=== PATIENT | female | born 1960 | race Caucasian/White ===

== ENCOUNTER 2016-08-28 18:26 | Observation (INO) | payer OTHER ==
[~2016-08-28] VITALS: Ht 167.6 cm; Wt 92.8 kg
[~2016-08-28 18:26] MED LIST: IBUP-1050 PO
[2016-08-28] MEDS ORDERED: ASPIRIN 324 MG CHEW PO STA (18:59)
[2016-08-28 19:22] LABS: BASO % 0.4 %; BASO ABS # 0.02 K/uL (0-0.2); COMPLETE YES; EOS % 0.2 %; IG% 0.2 %; LYMPH % 29.2 %; LYMPH ABS # 1.55 K/uL (1.2-3.4); MEAN CELL VOLUME 89.5 fL (80-100); MEAN CORPUSCULAR HGB CONC 33.5 g/dl (32-36); MONO % 6.8 %; NEUT % 63.2 %; PLATELET COUNT 196 K/uL (130-400); RED BLOOD COUNT 4.47 M/uL (4.2-5.4); WHITE BLOOD COUNT 5.31 K/uL (4.8-10.8)
--- NOTE | 2016-08-28 19:24 | DIAGNOSTIC IMAGING REPORT ---
CHEST ONE VIEW PORTABLE HISTORY: Atypical chest pain. COMPARISON: None. FINDINGS: The lungs are clear. Cardiac silhouette is normal in size. No pleural effusions. No pneumothorax. IMPRESSION: No acute process. Electronically signed by: Dragan Hernandez M.D. 08/28/2016 7:22 PM Dictated Date/Time: 08/28/2016 7:21 PM
[2016-08-28 19:30] LABS: INR 0.9 (0.9-1.1)
[2016-08-28 19:37] LABS: BUN/CREATININE RATIO 18.3 (10-20); CALCIUM 8.9 mg/dl (8.5-10.1); CREATININE 0.77 mg/dl (0.60-1.20); POTASSIUM 3.6 mmol/L (3.5-5.1)
[2016-08-28] MEDS ORDERED: POTASSIUM CHLORIDE 10 MEQ TABCR PO STA (20:20)
[2016-08-28 20:26] LABS: MAGNESIUM 1.9 mg/dl (1.8-2.4); THYROID STIMULATING HORMONE 3.67 uIu/ml (0.300-4.500)
[2016-08-28] MEDS ORDERED: IV FLUIDS COMPLETED PRN (20:30)
[2016-08-28] MEDS ORDERED: ONDANSETRON INJ 2 MG/ML 2 ML VIAL IV PRN (21:00)
[2016-08-28] MEDS ORDERED: NITROGLYCERIN 0.4 MG SL PER TAB CHARGE SL PRN (21:00)
[2016-08-28] MEDS ORDERED: MoRPHine SULFATE 4 MG/ML 1 ML CARP\\VIAL IV PRN (21:00)
[2016-08-28] MEDS ORDERED: LORAZEPAM 2 MG/ML 1 ML VIAL IV PRN ×2 (21:00)
[2016-08-28] MEDS ORDERED: GABAPENTIN 600 MG TAB PO SCH (21:00)
[2016-08-28] MEDS ORDERED: ACETAMINOPHEN 325 MG TAB PO PRN (21:00)
[2016-08-28] MEDS ORDERED: LORAZEPAM INJ 0.5 MG in SYRINGE 0.75 ML IV PRN (22:00)
[2016-08-28 22:04] VITALS: BP_SYST 188; BP_SYST 200; BP_DIAS 93; BP_DIAS 98; PULSE 85; TEMP 36.5; O2SAT 97; Ht 167.6 cm; Wt 92.8 kg
--- NOTE | 2016-08-28 22:36 | HISTORY & PHYSICAL EXAMINATION ---
DATE OF ADMISSION: 08/28/2016 PATIENT'S PRIMARY CARE DOCTOR: Dr. Chavez Hx obtained from px and records. CHIEF COMPLAINT: Chest pain. HISTORY OF PRESENT ILLNESS: Medical history is significant for regular alcohol intake. In the last 2 months, patient has been having on and off substernal discomfort, spontaneously going away, usually related to stress. No consultations done. Tonight the patient noted squeezing chest pain w palpitations. non-pleuritic Some stress with some family members going for surgery. No fever or chills. No cough. No shortness of breath. No trauma. MEDICAL HISTORY: As above. SURGERIES: section. HOME MEDICATIONS: None. ALLERGIES: No known drug allergies. FAMILY HISTORY: Alcoholism and heart disease. PERSONAL AND SOCIAL HISTORY: Nonsmoker. Regular alcohol intake. Family is worried that she may be drinking more than she should. 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 REVIEW OF SYSTEMS: As per HPI, all other ROS negative. PHYSICAL EXAMINATION: VITAL SIGNS: Blood pressure was noted to be 201/120, pulse rate 101 later 90, RR 18, temperature 37.2 and sats 94 on room air. GENERAL: Noted to be obese, anxious, in no respiratory distress. SKIN: Normal color. HEENT: [place] palpebral conjunctivae. Dry mucosa. NECK: No JVD. Supple. CHEST: Clear to auscultation. No anterior chest wall tenderness. HEART: Regular rate and rhythm. ABDOMEN: Soft. EXTREMITIES: No edema. no tenderness NEUROLOGIC: No gross focality. LABORATORIES: Hemoglobin 13.4, hematocrit 40, white cell count was noted to be 5.3, platelets of 196. Sodium 140, potassium 3.6, chloride 107, CO2 34, BUN 14, creatinine 0.7 and glucose was noted to be 86. Chest x-ray; no acute pathology. EKG; NSR. LAE with borderline LVH, NSSTW abn on the lateral leads. ASSESSMENT: 1. Atypical chest pain, likely secondary to hypertensive urgency. possible chronic HTN w/ LAE on EKG 2. Possible alcohol abuse. PLAN: Observation PCU. initiate Lisinopril. Follow troponin, 2D echo. Home tomorrow morning if patient's blood pressure controlled and above workup unremarkable. DT precautions DVT prophylaxis. Lovenox SQ Full code MTDD
[2016-08-28] MEDS ORDERED: MULTI-VITAMIN INFUSION INJ 10 ML, THIAMINE HCL INJ 100 MG, FoLIC ACID INJ 1 MG, POTASSI... IV ONE ×5 (23:00)
[2016-08-28] MEDS ORDERED: LISINOPRIL 5 MG TAB PO SCH (23:00)
[2016-08-28] MEDS ORDERED: MAGNESIUM SULFATE 1GM / D5W 1 GM in PREMIXED IN D5W 100 ML IV SCH (23:00)
[2016-08-28] MEDS ORDERED: GABAPENTIN 1200MG LOADING DOSE PO ONE (23:00)
[2016-08-28] MEDS: ENOXAPARIN 40 MG/0.4 ML SYR SC SCH (23:21)
[2016-08-28 23:39] VITALS: BP 167/100; PULSE 87; TEMP 36.9; O2SAT 97
[2016-08-29] VITALS (10 sets, daily range): BP systolic 120–157; BP diastolic 76–91; PULSE 63–80; TEMP 36.6–36.9; O2SAT 96–99
--- NOTE | 2016-08-29 00:54 | EMERGENCY ROOM VISIT NOTE ---
History Report prepared by Jonas: Geneva Ga Under the Supervision of: Dr. Mick Wiley M.D. 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 She states that her symptoms lasted for about 30 minutes and then resolved on their own after arriving the the ED. She was not exerting herself when her symptoms began and states that she was just driving home. The patient denies any current pain. She states that she is just feeling generally weak and shaky all over. The patient has been having episodes over the past 3 years where she develops a tightness in her chest and feels like she is going to pass out. She does not actually pass out. The patient states that these episodes have been getting worse recently. Today she experienced the same thing, but she also felt her heart beating irregularly, which she states is new today. The patient denies shortness of breath, diaphoresis, nausea, vomiting, fever, cough, and leg pain or swelling. She does not experience any chest pain with exertion. Her aunt had an OR in her 40s. 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 A total of 10 systems reviewed and were otherwise negative. Past Medical & Surgical Medical Problems: (1) Chest pain (2) Finger dislocation (3) Popliteal cyst (4) Sterilization Family History Heart disease Social History Smoking Status: Never Smoker Housing Status: lives with family Occupation Status: employed Current/Historical Medications No Active Prescriptions or Reported Meds Allergies Coded Allergies: No Known Allergies (Verified , 08/28/16) Physical Exam Vital Signs Date Time Temp Pulse Resp B/P Pulse Ox O2 Delivery O2 Flow Rate FiO2 08/28/16 20:06 84 16 199/118 97 Room Air 08/28/16 19:17 98 08/28/16 19:01 98 Room Air 08/28/16 19:00 175/112 08/28/16 18:59 101 18 201/120 97 Room Air 08/28/16 18:56 98 Room Air 08/28/16 18:35 37.2 87 18 176/119 94 Room Air Physical Exam Constitutional: Vital signs reviewed. Eyes: Pupils are equal round reactive to light. Conjunctiva are noninjected. ENT: Pharynx is clear without erythema or exudate. Mucous membranes are moist. Neck supple without meningeal signs. Respiratory: Clear to auscultation bilaterally. Breath sounds are equal bilaterally. Cardiovascular: Regular rate and rhythm. No rubs or gallops. GI: Soft, nondistended and nontender. Bowel sounds are present. Musculoskeletal: No peripheral edema. No lower extremity tenderness. Integumentary: No cyanosis. Neurological: The patient is awake and alert. No focal deficits. Psychiatric: Normal affect. Medical Decision & Procedures ER Provider Diagnostic Interpretation: Radiology results as stated below per my review and the radiologist's interpretation: CHEST ONE VIEW PORTABLE HISTORY: Atypical chest pain. COMPARISON: None. FINDINGS: The lungs are clear. Cardiac silhouette is normal in size. No pleural effusions. No pneumothorax. IMPRESSION: No acute process. Electronically signed by: Dragan Hernandez M.D. 08/28/2016 7:22 PM Dictated Date/Time: 08/28/2016 7:21 PM Laboratory Results 08/28/16 19:10 Red Blood Count 4.47, Mean Corpuscular Volume 89.5, Mean Corpuscular Hemoglobin 30.0, Mean Corpuscular Hemoglobin Concent 33.5, Mean Platelet Volume 10.0, Neutrophils (%) (Auto) 63.2, Lymphocytes (%) (Auto) 29.2, Monocytes (%) (Auto) 6.8, Eosinophils (%) (Auto) 0.2, Basophils (%) (Auto) 0.4, Neutrophils # (Auto) 3.36, Lymphocytes # (Auto) 1.55, Monocytes # (Auto) 0.36, Eosinophils # (Auto) 0.01, Basophils # (Auto) 0.02 08/28/16 19:10 Test 08/28/16 19:10 08/28/16 19:14 White Blood Count 5.31 K/uL (4.8-10.8) Red Blood Count 4.47 M/uL (4.2-5.4) Hemoglobin 13.4 g/dL (12.0-16.0) Hematocrit 40.0 % (37-47) Mean Corpuscular Volume 89.5 fL (80-100) Mean Corpuscular Hemoglobin 30.0 pg (25-34) Mean Corpuscular Hemoglobin Concent 33.5 g/dl (32-36) Platelet Count 196 K/uL (130-400) Mean Platelet Volume 10.0 fL (7.4-10.4) Neutrophils (%) (Auto) 63.2 % Lymphocytes (%) (Auto) 29.2 % Monocytes (%) (Auto) 6.8 % Eosinophils (%) (Auto) 0.2 % Basophils (%) (Auto) 0.4 % Neutrophils # (Auto) 3.36 K/uL (1.4-6.5) Lymphocytes # (Auto) 1.55 K/uL (1.2-3.4) Monocytes # (Auto) 0.36 K/uL (0.11-0.59) Eosinophils # (Auto) 0.01 K/uL (0-0.5) Basophils # (Auto) 0.02 K/uL (0-0.2) RDW Standard Deviation 48.5 fL (36.4-46.3) RDW Coefficient of Variation 14.7 % (11.5-14.5) Immature Granulocyte % (Auto) 0.2 % Immature Granulocyte # (Auto) 0.01 K/uL (0.00-0.02) Prothrombin Time 10.0 SECONDS (9.0-12.0) Prothromb Time International Ratio 0.9 (0.9-1.1) Activated Partial Thromboplast Time 25.7 SECONDS (21.0-31.0) Partial Thromboplastin Ratio 1.0 Anion Gap 11.0 mmol/L (3-11) Est Creatinine Clear Calc Drug Dose 98.0 ml/min Estimated GFR () 101.5 Estimated GFR (Non- 87.5 BUN/Creatinine Ratio 18.3 (10-20) Calcium Level 8.9 mg/dl (8.5-10.1) Magnesium Level 1.9 mg/dl (1.8-2.4) Total Bilirubin 0.5 mg/dl (0.2-1) Direct Bilirubin 0.1 mg/dl (0-0.2) Aspartate Amino Transf (AST/SGOT) 25 U/L (15-37) Alanine Aminotransferase (ALT/SGPT) 28 U/L (12-78) Alkaline Phosphatase 82 U/L (45-117) Total Protein 7.7 gm/dl (6.4-8.2) Albumin 4.4 gm/dl (3.4-5.0) Lipase 90 U/L (73-393) Thyroid Stimulating Hormone (TSH) 3.670 uIu/ml (0.300-4.500) Bedside Troponin I 0.000 ng/ml (0-0.045) Laboratory results as reviewed by me. Medications Administered Medications (Trade) Dose Ordered Sig/Kanwal Route Start Time Stop Time Status Last Admin Dose Admin Aspirin (Aspirin Chew) 324 mg NOW STAT PO 08/28/16 18:59 08/28/16 19:00 DC 08/28/16 19:07 324 MG ECG Indication: chest pain Rate (beats per minute): 92 Rhythm: normal sinus Findings: ST depression (Inferior, V3 - V6), prolonged QT, no ectopy Comparison ECG Date: no prior available ED Course 1841: The patient was evaluated in room B3B. A complete history and physical exam was performed. 1858: Aspirin 324 mg PO 1942: I reassessed the patient at this time. She is feeling better and resting comfortably. She is not currently experiencing any chest pain. I discussed the results and treatment plan with the patient. I answered all pertaining questions that she had. She expressed understanding and verbalized agreement. 1945: I spoke with Dr. Page. We discussed the patient's results and treatment plan. [facility]. Medical Decision This is a 55-year-old female presents with chest pain. Differential diagnosis includes unstable angina, OR, pleurisy, GERD, anxiety. I did perform a limited focused review of portions of the patient's old chart on the electronic medical record. The patient has had no recent pertinent visits to this hospital. I did evaluate the patient as noted above. Patient is presenting with chest pain which has since resolved. She states she has tightness and near syncope. She is chest pain-free at this time. She does have a strong family history of heart disease. IV access was established. The patient was placed on a continuous ekg monitor tech. I did treat the patient with aspirin. I did order and personally review the patient's 12-lead EKG and chest x-ray as described above. She does have an abnormal EKG with ST depressions. I did order and review the patient's blood work as noted in the electronic medical record. Troponin is negative. I did discuss the test results with the patient. I did recommend hospitalization for further evaluation of her symptoms and repeat cardiac enzymes. I did discuss the case with the hospitalist and manager case management. Consults Time Called: 1944 Consulting Physician: Dr. Page Returned Call: [address] Page. We discussed the patient's results and treatment plan. The patient will be evaluated by the [facility] for further management. Impression Primary Impression: Precordial chest pain Additional Impressions: Hypertension Abnormal ECG Scribe Attestation The scribe's documentation has been prepared under my direct and personally reviewed by me in its entirety. I confirm that the note above accurately reflects all work, treatment, procedures, and medical decision making performed by me. Departure Information Dispostion Being Evaluated By Hospitalist Prescriptions No Active Prescriptions or Reported Meds Referrals No Doctor, Assigned (PCP) Patient Instructions [facility] Problem Qualifiers Additional Impressions: Hypertension Hypertension type: unspecified secondary hypertension Qualified Codes: I15.9 - Secondary hypertension, unspecified
[2016-08-29] MEDS ORDERED: IV FLUIDS COMPLETED PRN (02:15)
[2016-08-29] MEDS: GABAPENTIN 600MG Q6H DOSE PO SCH ×2 (05:17→11:52)
[2016-08-29 06:45] LABS: BASO % 0.2 %; BASO ABS # 0.01 K/uL (0-0.2); COMPLETE YES; EOS % 0.5 %; HEMATOCRIT 38.5 % (37-47); LYMPH % 32.3 %; LYMPH ABS # 1.41 K/uL (1.2-3.4); MEAN CELL VOLUME 91.9 fL (80-100); MEAN CORPUSCULAR HEMOGLOBIN 29.8 pg (25-34); MEAN CORPUSCULAR HGB CONC 32.5 g/dl (32-36); MEAN PLATELET VOLUME 10.5 fL (7.4-10.4); MONO % 8.9 %; NEUT % 58.1 %; PLATELET COUNT 182 K/uL (130-400); RED BLOOD COUNT 4.19 M/uL (4.2-5.4); WHITE BLOOD COUNT 4.37 K/uL (4.8-10.8)
[2016-08-29 07:13] LABS: BLOOD UREA NITROGEN 15 mg/dl (7-18); BUN/CREATININE RATIO 20.4 (10-20); CALCIUM 8.8 mg/dl (8.5-10.1); CARBON DIOXIDE 29 mmol/L (21-32); CHLORIDE 107 mmol/L (98-107); CREATININE 0.73 mg/dl (0.60-1.20); GLUCOSE 85 mg/dl (70-99); POTASSIUM 3.9 mmol/L (3.5-5.1); SODIUM 142 mmol/L (136-145)
[2016-08-29 07:17] LABS: CHOLESTEROL 232 mg/dl (0-200); HDL CHOLESTEROL 117 mg/dl; LDL CHOLESTEROL CALCULATED 100 mg/dl; TRIGLYCERIDES 75 mg/dl (0-150); VERY LOW DENSITY LIPOPROT CALC 15 mg/dl
[2016-08-29] MEDS: THIAMINE HCL 100 MG TAB PO SCH (08:37)
[2016-08-29] MEDS: MULTIVITAMIN TAB PO SCH (08:37)
[2016-08-29] MEDS ORDERED: LISINOPRIL 5 MG TAB PO SCH (09:00)
--- NOTE | 2016-08-29 13:21 | ECHOCARDIOGRAM REPORT ---
*NOTICE TO RECEIVING LIBERTARIAN AGENCY This information is strictly Confidential and protected under [place] law. [place] law prohibits you from making any further disclosure of this information unless further disclosure is expressly permitted by the written consent of the person to whom it pertains or is authorized by law. A general authorization for the release of medical or other information is not sufficient for this purpose. Hospital accepts no responsibility if the information is made available to any other person, INCLUDING THE PATIENT. Interpretation Summary * Name: KARTHIKEYAN PALOMARES Study Date: 08/29/2016 07:08 AM BP: 120/78 mmHg * Patient Location: [facility] HR: 67 * : 1960 (M/d/yyyy) Gender: Female Height: 66 in * Age: 55 yrs Ethnicity: [place] Weight: 209 lb * Ordering Physician: Ian Page * Performed By: Kaycee Garnica RDCS * * Reason For Study: Chest pain * BSA: 2.0 m2 * -- Conclusions -- * The left ventricular wall motion is normal. * Left ventricular systolic function is normal. * The LV Ejection Fraction = 60-65%. * Diastolic dysfunction, Grade II (pseudonormalization pattern). * There is no significant valvular heart disease. Procedure Details * A complete two-dimensional transthoracic echocardiogram was performed (2D, M-mode, Doppler and color flow Doppler). Left Ventricle * The left ventricle is normal in size. * There is normal left ventricular wall thickness. * Ejection Fraction = 60-65%. * Left ventricular systolic function is normal. * The left ventricular wall motion is normal. Right Ventricle * The right ventricle is normal size. * The right ventricular systolic function is normal as assessed by tricuspid annular plane systolic excursion (TAPSE) (normal >1.5 cm). Atria * The left atrial size is normal. * Right atrial size is normal. * There is no evidence of atrial septal defect, but resolution does not allow assessment for a patent foramen ovale. Mitral Valve * The mitral valve is normal. * There is no mitral valve stenosis. * Significant mitral regurgitation is absent. Tricuspid Valve * The tricuspid valve is normal. * There is no tricuspid stenosis. * Significant tricuspid regurgitation is absent. Aortic Valve * The aortic valve is trileaflet. * Aortic stenosis is absent. * There is no significant aortic regurgitation. Pulmonic Valve * The pulmonary valve is not well seen, but the Doppler examination is normal without significant regurgitation or stenosis. Great Vessels * The aortic root and proximal ascending aorta are normal sized. Pericardium/Pleural * There is no pericardial effusion. Great Vessels * Normal inferior vena cava diameter and respiratory variation suggests normal central venous pressure. Left Ventricular Diastolic Function * Diastolic dysfunction, Grade II (pseudonormalization pattern). MMode 2D Measurements and Calculations IVSd 1.3 cm LVIDd 5.0 cm LVIDs 3.2 cm LVPWd 1.3 cm IVS/LVPW 1.0 FS 37.1 % EDV(Teich) 120.8 ml ESV(Teich) 40.2 ml EF(Teich) 66.7 % EDV(cubed) 128.5 ml ESV(cubed) 32.0 ml EF(cubed) 75.1 % LV mass(C)d 254.6 grams LV mass(C)dI 125.0 grams/m\S\2 SV(Teich) 80.6 ml SI(Teich) 39.6 ml/m\S\2 SV(cubed) 96.5 ml SI(cubed) 47.4 ml/m\S\2 Ao root diam 3.3 cm Ao root area 8.4 cm\S\2 ACS 2.1 cm LA dimension 3.9 cm asc Aorta Diam 3.5 cm LA/Ao 1.2 LVOT diam 2.0 cm LVOT area 3.1 cm\S\2 LVAd ap4 26.5 cm\S\2 LVLd ap4 7.4 cm EDV(MOD-sp4) 81.1 ml EDV(sp4-el) 79.9 ml LVAs ap4 15.2 cm\S\2 LVLs ap4 6.2 cm ESV(MOD-sp4) 32.5 ml ESV(sp4-el) 31.4 ml EF(MOD-sp4) 59.9 % EF(sp4-el) 60.8 % LVAd ap2 26.8 cm\S\2 LVLd ap2 8.1 cm EDV(MOD-sp2) 79.1 ml EDV(sp2-el) 75.3 ml LVAs ap2 14.3 cm\S\2 LVLs ap2 6.4 cm ESV(MOD-sp2) 27.3 ml ESV(sp2-el) 27.2 ml EF(MOD-sp2) 65.5 % EF(sp2-el) 63.9 % LVLd %diff 7.9 % EDV(MOD-bp) 83.4 ml LVLs %diff 2.8 % ESV(MOD-bp) 30.3 ml EF(MOD-bp) 63.7 % SV(MOD-sp4) 48.5 ml SI(MOD-sp4) 23.8 ml/m\S\2 SV(MOD-sp2) 51.8 ml SI(MOD-sp2) 25.4 ml/m\S\2 SV(MOD-bp) 53.1 ml SI(MOD-bp) 26.1 ml/m\S\2 SV(sp4-el) 48.6 ml SI(sp4-el) 23.8 ml/m\S\2 SV(sp2-el) 48.1 ml SI(sp2-el) 23.6 ml/m\S\2 Doppler Measurements and Calculations MV E max pro 59.4 cm/sec MV dec time 0.32 sec Ao V2 max 112.9 cm/sec Ao max PG 5.1 mmHg Ao max PG (full) 1.6 mmHg CHRISTINE(V,A) 2.6 cm\S\2 CHRISTINE(V,D) 2.6 cm\S\2 LV V1 max PG 3.5 mmHg LV V1 max 94.0 cm/sec PA V2 max 82.5 cm/sec PA max PG 2.7 mmHg PA acc slope 434.3 cm/sec\S\2 PA acc time 0.18 sec PI max pro 136.4 cm/sec PI max PG 7.4 mmHg PI dec slope 159.3 cm/sec\S\2 PI P1/2t 250.8 msec TR max pro 200.9 cm/sec PA pr(Accel) -1.81 mmHg
[2016-08-29] MEDS ORDERED: LISINOPRIL 5 MG TAB PO ONE (14:30)
--- NOTE | 2016-08-29 14:36 | Progress Note ---
Internal Med Progress Note Date of Service: Aug 29, 2016. Provider Documentation: SUBJECTIVE: The patient was seen and examined Symptoms of chest tightness on and off for a while Short lived and thinks related to stress and anxiety Moderate Alcohol drinker Noted to have very high BP during admission OBJECTIVE: Vital Signs-as noted below Exam: General-No distress at rest Eyes-normal ENT-normal Neck-supple Lungs-clear to ausucltate bilaterally Heart-regular,no murmur Abdomen-benign,no masses,bowel sound present Extremities-No edema Neuro-AAOx3 No tremors Lab data as noted below. ASSESSMENT & PLAN: Atypical chest pain, -likely secondary to hypertensive urgency.stress and anxiety and panic attack -history of prior episodes -lasted longer this time with very high BP -Follow troponin, 2D echo.Negative -ECHO:: * The left ventricular wall motion is normal. * Left ventricular systolic function is normal. * The LV Ejection Fraction = 60-65%. * Diastolic dysfunction, Grade II (pseudonormalization pattern). * There is no significant valvular heart disease. -no more episode of pain Hypertensive Urgency May be contributing her symptoms Started on Lisinopril Dose increased Monitor Possible alcohol abuse. Drinks more than social Last drink >24 hours ago Has been on Folic acid,Thiamin and fluid To signs of withdrawal DT precautions DVT prophylaxis. Lovenox SQ Full code DISPOSITION Likely home in AM Vital Signs: Date Time Temp Pulse Resp B/P Pulse Ox O2 Delivery O2 Flow Rate FiO2 08/29/16 12:12 36.9 67 20 157/89 96 Room Air 08/29/16 12:00 97 Room Air 08/29/16 09:15 80 148/84 08/29/16 08:00 97 Room Air 08/29/16 04:06 36.6 67 18 120/78 97 Room Air 08/29/16 04:00 97 Room Air 08/29/16 00:01 97 Room Air 08/28/16 23:39 36.9 87 18 167/100 97 Room Air 08/28/16 22:04 36.5 85 20 188/93 97 Room Air 200/98 08/28/16 20:48 92 18 187/109 96 Room Air 08/28/16 20:06 84 16 199/118 97 Room Air 08/28/16 19:17 98 08/28/16 19:01 98 Room Air 08/28/16 19:00 175/112 08/28/16 18:59 101 18 201/120 97 Room Air 08/28/16 18:56 98 Room Air 08/28/16 18:35 37.2 87 18 176/119 94 Room Air Lab Results: Results Past 24 Hours Test 08/28/16 19:10 08/28/16 19:14 08/29/16 05:58 Range/Units White Blood Count 5.31 4.37 4.8-10.8 K/uL Red Blood Count 4.47 4.19 4.2-5.4 M/uL Hemoglobin 13.4 12.5 12.0-16.0 g/dL Hematocrit 40.0 38.5 37-47 % Mean Corpuscular Volume 89.5 91.9 80-100 fL Mean Corpuscular Hemoglobin 30.0 29.8 25-34 pg Mean Corpuscular Hemoglobin Concent 33.5 32.5 32-36 g/dl Platelet Count 196 182 130-400 K/uL Mean Platelet Volume 10.0 10.5 7.4-10.4 fL Neutrophils (%) (Auto) 63.2 58.1 % Lymphocytes (%) (Auto) 29.2 32.3 % Monocytes (%) (Auto) 6.8 8.9 % Eosinophils (%) (Auto) 0.2 0.5 % Basophils (%) (Auto) 0.4 0.2 % Neutrophils # (Auto) 3.36 2.54 1.4-6.5 K/uL Lymphocytes # (Auto) 1.55 1.41 1.2-3.4 K/uL Monocytes # (Auto) 0.36 0.39 0.11-0.59 K/uL Eosinophils # (Auto) 0.01 0.02 0-0.5 K/uL Basophils # (Auto) 0.02 0.01 0-0.2 K/uL RDW Standard Deviation 48.5 50.2 36.4-46.3 fL RDW Coefficient of Variation 14.7 14.8 11.5-14.5 % Immature Granulocyte % (Auto) 0.2 0.0 % Immature Granulocyte # (Auto) 0.01 0.00 0.00-0.02 K/uL Prothrombin Time 10.0 9.0-12.0 SECONDS Prothromb Time International Ratio 0.9 0.9-1.1 Activated Partial Thromboplast Time 25.7 21.0-31.0 SECONDS Partial Thromboplastin Ratio 1.0 Sodium Level 142 142 136-145 mmol/L Potassium Level 3.6 3.9 3.5-5.1 mmol/L Chloride Level 107 107 98-107 mmol/L Carbon Dioxide Level 24 29 21-32 mmol/L Anion Gap 11.0 6.0 3-11 mmol/L Blood Urea Nitrogen 14 15 7-18 mg/dl Creatinine 0.77 0.73 0.60-1.20 mg/dl Est Creatinine Clear Calc Drug Dose 98.0 101.1 ml/min Estimated GFR () 101.5 108.2 Estimated GFR (Non- 87.5 93.4 BUN/Creatinine Ratio 18.3 20.4 10-20 Random Glucose 86 85 70-99 mg/dl Calcium Level 8.9 8.8 8.5-10.1 mg/dl Magnesium Level 1.9 1.8-2.4 mg/dl Total Bilirubin 0.5 0.2-1 mg/dl Direct Bilirubin 0.1 0-0.2 mg/dl Aspartate Amino Transf (AST/SGOT) 25 15-37 U/L Alanine Aminotransferase (ALT/SGPT) 28 12-78 U/L Alkaline Phosphatase 82 45-117 U/L Total Protein 7.7 6.4-8.2 gm/dl Albumin 4.4 3.4-5.0 gm/dl Lipase 90 73-393 U/L Thyroid Stimulating Hormone (TSH) 3.670 0.300-4.500 uIu/ml Bedside Troponin I 0.000 0-0.045 ng/ml Troponin I < 0.015 0-0.045 ng/ml Triglycerides Level 75 0-150 mg/dl Cholesterol Level 232 0-200 mg/dl HDL Cholesterol 117 mg/dl LDL Cholesterol, Calculated 100 mg/dl VLDL Cholesterol, Calculated 15 mg/dl Cholesterol/HDL Ratio 2.0
[2016-08-29] MEDS: ENOXAPARIN 40 MG/0.4 ML SYR SC SCH (20:54)
[2016-08-29] MEDS: GABAPENTIN 600MG Q8H DOSE PO SCH (22:07)
[2016-08-30 04:15] VITALS: BP 123/78; PULSE 60; TEMP 36.4; O2SAT 97
[2016-08-30] MEDS: GABAPENTIN 600MG Q8H DOSE PO SCH (05:58)
[2016-08-30 06:14] LABS: BUN/CREATININE RATIO 20.6 (10-20); CREATININE 0.76 mg/dl (0.60-1.20); MAGNESIUM 2.5 mg/dl (1.8-2.4); PHOSPHORUS 4.4 mg/dl (2.5-4.9); POTASSIUM 4.3 mmol/L (3.5-5.1)
[2016-08-30] MEDS: MULTIVITAMIN TAB PO SCH (07:39)
[2016-08-30] MEDS: THIAMINE HCL 100 MG TAB PO SCH (07:39)
[2016-08-30 08:19] VITALS: BP 131/84; PULSE 71; TEMP 36.6; O2SAT 93
[2016-08-30] MEDS ORDERED: LISINOPRIL 5 MG TAB PO SCH (09:00)
--- NOTE | 2016-08-30 11:07 | Progress Note ---
Internal Med Progress Note Date of Service: Aug 30, 2016. Provider Documentation: SUBJECTIVE: The patient was seen and examined Symptoms of chest tightness on and off for a while Short lived and thinks related to stress and anxiety Moderate Alcohol drinker Noted to have very high BP during admission Denies any more symptoms BP remains controlled Wants tayla go home today OBJECTIVE: Vital Signs-as noted below Exam: General-No distress at rest Eyes-normal ENT-normal Neck-supple Lungs-clear to ausucltate bilaterally Heart-regular,no murmur Abdomen-benign,no masses,bowel sound present Extremities-No edema Neuro-AAOx3 No tremors Lab data as noted below. ASSESSMENT & PLAN: Atypical chest pain-resolved , -likely secondary to hypertensive urgency.stress and anxiety and panic attack -history of prior episodes -lasted longer this time with very high BP -Follow troponin, 2D echo.Negative -ECHO:: * The left ventricular wall motion is normal. * Left ventricular systolic function is normal. * The LV Ejection Fraction = 60-65%. * Diastolic dysfunction, Grade II (pseudonormalization pattern). * There is no significant valvular heart disease. -no more episode of pain Hypertensive Urgency May be contributing her symptoms Started on Lisinopril Dose increased Blood pressure is controlled wit Increasing dose of Lisinopril Possible alcohol abuse. Drinks more than social Last drink >24 hours ago Has been on Folic acid,Thiamin and fluid To signs of withdrawal DT precautions-no tremors and or any other signs or symptoms of withdrawal DVT prophylaxis. Lovenox SQ Full code DISPOSITION Discharge home today Vital Signs: Date Time Temp Pulse Resp B/P Pulse Ox O2 Delivery O2 Flow Rate FiO2 08/30/16 08:40 Room Air 08/30/16 08:19 36.6 71 18 131/84 93 Room Air 08/30/16 04:15 36.4 60 16 123/78 97 Room Air 08/30/16 04:00 Room Air 08/30/16 00:01 Room Air 08/29/16 23:20 36.7 63 16 125/76 97 Room Air 08/29/16 20:00 Room Air 08/29/16 19:53 36.9 67 16 151/91 99 08/29/16 16:00 Room Air 08/29/16 15:45 36.8 68 18 144/90 96 Room Air 08/29/16 12:12 36.9 67 20 157/89 96 Room Air 08/29/16 12:00 97 Room Air Lab Results: Results Past 24 Hours Test 08/30/16 05:20 Range/Units Sodium Level 144 136-145 mmol/L Potassium Level 4.3 3.5-5.1 mmol/L Chloride Level 110 98-107 mmol/L Carbon Dioxide Level 29 21-32 mmol/L Anion Gap 5.0 3-11 mmol/L Blood Urea Nitrogen 16 7-18 mg/dl Creatinine 0.76 0.60-1.20 mg/dl Est Creatinine Clear Calc Drug Dose 97.1 ml/min Estimated GFR () 103.1 Estimated GFR (Non- 88.9 BUN/Creatinine Ratio 20.6 10-20 Random Glucose 93 70-99 mg/dl Calcium Level 9.0 8.5-10.1 mg/dl Phosphorus Level 4.4 2.5-4.9 mg/dl Magnesium Level 2.5 1.8-2.4 mg/dl
[2016-08-30] MEDS ORDERED: LISI-461 PO (11:29)
--- NOTE | 2016-08-30 11:33 | Discharge Instructions ---
Discharge Instructions Date of Service Aug 30, 2016. Admission Reason for Admission: Chest Pain Discharge Discharge Diagnosis / Problem: Hypertensive Urgency Discharge Goals Goal(s): Prevent Disease Progression Activity Recommendations Activity Limitations: resume your previous activity . Instructions / Follow-Up Instructions / Follow-Up Dr Chavez on 09/02/16 at 10:25 AM Current Hospital Diet Patient's current hospital diet: AHA Diet (Heart Healthy) Discharge Diet Recommended Diet: AHA Diet (Heart Healthy) Pending Studies Studies pending at discharge: no Laboratory Results Lipid Panel Test 08/29/16 05:58 Range/Units Triglycerides Level 75 0-150 mg/dl Cholesterol Level 232 H 0-200 mg/dl HDL Cholesterol 117 mg/dl Cholesterol/HDL Ratio 2.0 LDL Cholesterol, Calculated 100 mg/dl Medical Emergencies . Who to Call and When: Medical Emergencies: If at any time you feel your situation is an emergency, please call 911 immediately. . Non-Emergent Contact Non-Emergency issues call your: Primary Care Provider . Past History Medical & Surgical History: (1) Hypertension (2) Precordial chest pain . "Provider Documentation" section prepared by Padmini Kerr. . VTE Core Measure Inpt VTE Proph given/why not?: Enoxaparin (Lovenox)SQ
[2016-08-30 11:50] VITALS: BP 137/83; PULSE 64; TEMP 36.7; O2SAT 97
[2016-08-30 11:57] VITALS: BP 137/83; PULSE 64; TEMP 36.7; O2SAT 97
[2016-08-31] MEDS ORDERED: GABAPENTIN 600MG Q12H DOSE PO SCH (06:00)
[2016-09-01] MEDS ORDERED: GABAPENTIN 600MG X1 DOSE PO SCH (18:00)
--- NOTE | 2016-09-05 13:35 | Discharge Summary ---
Discharge Summary Date of Service Sep 05, 2016. Discharge Summary Admission Date: Aug 28, 2016 at 20:21 Discharge Date: Aug 30, 2016 Discharge Disposition: Home Principal Diagnosis: Hypertensive urgency Secondary Diagnoses/Problems: Please see H&P and Hospital Progress note Medication Reconciliation New Medications: Lisinopril (Lisinopril) 10 Mg Tab 10 MG PO DAILY, #30 Admission Information HPI (per Admitting provider): DATE OF ADMISSION: 08/28/2016 PATIENT'S PRIMARY CARE DOCTOR: Dr. Chavez Hx obtained from px and records. CHIEF COMPLAINT: Chest pain. HISTORY OF PRESENT ILLNESS: Medical history is significant for regular alcohol intake. In the last 2 months, patient has been having on and off substernal discomfort, spontaneously going away, usually related to stress. No consultations done. Tonight the patient noted squeezing chest pain w palpitations. non-pleuritic Some stress with some family members going for surgery. No fever or chills. No cough. No shortness of breath. No trauma. MEDICAL HISTORY: As above. SURGERIES: section. HOME MEDICATIONS: None. ALLERGIES: No known drug allergies. FAMILY HISTORY: Alcoholism and heart disease. PERSONAL AND SOCIAL HISTORY: Nonsmoker. Regular alcohol intake. Family is worried that she may be drinking more than she should. 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 REVIEW OF SYSTEMS: As per HPI, all other ROS negative. PHYSICAL EXAMINATION: VITAL SIGNS: Blood pressure was noted to be 201/120, pulse rate 101 later 90, RR 18, temperature 37.2 and sats 94 on room air. GENERAL: Noted to be obese, anxious, in no respiratory distress. SKIN: Normal color. HEENT: [place] palpebral conjunctivae. Dry mucosa. NECK: No JVD. Supple. CHEST: Clear to auscultation. No anterior chest wall tenderness. HEART: Regular rate and rhythm. ABDOMEN: Soft. EXTREMITIES: No edema. no tenderness NEUROLOGIC: No gross focality. LABORATORIES: Hemoglobin 13.4, hematocrit 40, white cell count was noted to be 5.3, platelets of 196. Sodium 140, potassium 3.6, chloride 107, CO2 34, BUN 14, creatinine 0.7 and glucose was noted to be 86. Chest x-ray; no acute pathology. EKG; NSR. LAE with borderline LVH, NSSTW abn on the lateral leads. ASSESSMENT: 1. Atypical chest pain, likely secondary to hypertensive urgency. possible chronic HTN w/ LAE on EKG 2. Possible alcohol abuse. PLAN: Observation PCU. initiate Lisinopril. Follow troponin, 2D echo. Home tomorrow morning if patient's blood pressure controlled and above workup unremarkable. DT precautions DVT prophylaxis. Lovenox SQ Full code Dictated: 08/28/[id number] Transcribed: 08/28/[id number] <Electronically signed by Ian Page M.D.> Signed: 08/29/16 1626 ES Ian Page M.D. Hospital Course Atypical chest pain-resolved , -likely secondary to hypertensive urgency.stress and anxiety and panic attack -history of prior episodes -lasted longer this time with very high BP -Follow troponin, 2D echo.Negative -ECHO:: * The left ventricular wall motion is normal. * Left ventricular systolic function is normal. * The LV Ejection Fraction = 60-65%. * Diastolic dysfunction, Grade II (pseudonormalization pattern). * There is no significant valvular heart disease. -no more episode of pain Hypertensive Urgency May be contributing her symptoms Started on Lisinopril Dose increased Blood pressure is controlled wit Increasing dose of Lisinopril Possible alcohol abuse. Drinks more than social Last drink >24 hours ago Has been on Folic acid,Thiamin and fluid To signs of withdrawal DT precautions-no tremors and or any other signs or symptoms of withdrawal DVT prophylaxis. Lovenox SQ Full code DISPOSITION Discharge home today Total time spent on discharge = 35 minutes This includes examination of the patient, discharge planning, medication reconciliation, and communication with other providers. Discharge Instructions Date of Service Aug 30, 2016. Admission Reason for Admission: Chest Pain Discharge Discharge Diagnosis / Problem: Hypertensive Urgency Discharge Goals Goal(s): Prevent Disease Progression Activity Recommendations Activity Limitations: resume your previous activity . Instructions / Follow-Up Instructions / Follow-Up Dr Chavez on 09/02/16 at 10:25 AM Current Hospital Diet Patient's current hospital diet: AHA Diet (Heart Healthy) Discharge Diet Recommended Diet: AHA Diet (Heart Healthy) Pending Studies Studies pending at discharge: no Laboratory Results Lipid Panel Test 08/29/16 05:58 Range/Units Triglycerides Level 75 0-150 mg/dl Cholesterol Level 232 H 0-200 mg/dl HDL Cholesterol 117 mg/dl Cholesterol/HDL Ratio 2.0 LDL Cholesterol, Calculated 100 mg/dl Medical Emergencies . Who to Call and When: Medical Emergencies: If at any time you feel your situation is an emergency, please call 911 immediately. . Non-Emergent Contact Non-Emergency issues call your: Primary Care Provider . Past History Medical & Surgical History: (1) Hypertension (2) Precordial chest pain . "Provider Documentation" section prepared by Padmini Kerr. . VTE Core Measure Inpt VTE Proph given/why not?: Enoxaparin (Lovenox)SQ <Electronically signed by Padmini Kerr M.D.> Additional Copies To Mario Chavez M.D.
== END 2016-08-30 13:00 | disposition home or self-care (01) ==
LOC: ENRESERVDT → ENRESERVTM → C.EDB 18:28 → C.2T 20:21
PROVIDERS: ADMIT Internal Medicine; ATTEND Internal Medicine
DX: R07.89 Other chest pain (principal); I10 Essential (primary) hypertension; R94.31 Abnormal electrocardiogram [ECG] [EKG]; Z82.49 Family history of ischemic heart disease and other diseases of the circulatory system; I15.9 Secondary hypertension, unspecified

== ENCOUNTER → 2017-01-21 | Outpatient (CLI) | payer OTHER ==
[~2017-01-21] MED LIST changes: -IBUP-1050 PO; +LISI-461 PO
== END | disposition home or self-care (01) ==
LOC: C.LAB 17:29
DX: Z02.83 Encounter for blood-alcohol and blood-drug test (principal)

== ENCOUNTER 2018-10-11 08:56 | Inpatient (IN) ==
--- NOTE | 2018-08-24 15:30 | PAT Medication Instructions ---
Medication Instructions Date of Service August 24, 2018 Home Medications losartan 50 mg PO QAM DO NOT take the morning of surgery losartan 50 mg PO QAM Other Notes If you have any questions please call us at [phone] or [phone] or [phone] or [phone]
--- NOTE | 2018-09-22 15:10 | PAT Medication Instructions ---
Medication Instructions Date of Service September 22, 2018 Home Medications losartan 50 mg PO QAM DO NOT take the morning of surgery losartan 50 mg PO QAM Other Notes If you have any questions please call us at [phone] or [phone] or [phone] or [phone]
--- NOTE | 2018-09-23 10:55 | Anesthesiology Consultation ---
Date of Service September 23, 2018 Assessment & Plan (1) Encounter for pre-operative examination: Chart Review Chart Review: Acceptable Risk for Surgery and Patient seen in Pre Admission Testing Teaching & Discussion Pre-Anesthesia Teaching/Discussion Notes: Instructed NPO after midnight before surgery,except medications with 15 cc of water. Medication instructions provided according to the PAT guidelines. History Surgery Operation Date: 10/11/18 07:00 Proposed Procedures p Right Total Knee Arthroplasty - Brendon Olivares DO Operation Date: 10/21/18 08:30 Proposed Procedures p Right Total Knee Arthroplasty - Talha Valadez MD *Correct operation date: 10/11/18* Height/Weight Height: 5 ft 6 in Weight: 92.3 kg Allergies Allergy/AdvReac Type Severity Reaction Status Date / Time No Known Allergies Allergy Verified 08/19/18 07:56 Medications Home Medications Medication Instructions Recorded Confirmed Last Taken losartan 100 mg PO QAM 08/19/18 09/23/18 Unknown Past Medical History Medical History Hypertension Migraine HX Obesity Osteoarthritis Exercise / Class Metabolic Activity III < 4 Walking/Shop/Light housework Past Surgical History Surgical History History of section X4 History of tooth extraction Past Anesthesia History No Family Hx of Anesthesia Complications and Other Per patient, poor pain control with novocaine with prior dental procedures (gas used/effective). History of PONV No Hx of PONV and No Hx of Motion Sickness Social History Smoking Status: Never smoker Do You Dip or Chew Tobacco: No Hx Alcohol Use: Yes Alcohol type: hard liquor alcohol intake frequency: a few times a month Hx Substance Use: No substance use type: does not use Review of Systems Patient denies chest pain, shortness of breath, cough, wheezing, palpitations. Physical Exam Vital Signs VITALS BP 162/90 (recheck 156/90) P 83 TEMP 97.9 SP02 99%RA RESP 16 PHYSICAL Full neck and c-spine range of motion. Full TMJ range of motion. TMD 2.5 finger breaths Mallampati Score 2 Dentition: missing side tooth Lungs: clear throughout to auscultation Cardiac: regular rate and rhythm, I/ systolic murmur Spine: normal Carotid arteries: negative bruit Extremities: no edema Testing Laboratory Results 09/23/18 11:30 09/23/18 11:30 09/23/18 09/23/18 09/23/18 11:30 11:30 11:30 PT 9.5 INR 0.9 APTT 25.9 Hemoglobin A1c 5.2 Urine Color Yellow Urine Appearance Clear Urine pH 6.5 Ur Specific [place] 1.024 Urine Protein Negative Urine Glucose (UA) Negative Urine Ketones Negative Urine Nitrite Negative Ur Leukocyte Esterase Negative Electrocardiogram Date: 09/23/18 NSR at 62bpm. LVH with repolarization abnormality. Chest X-Ray Date: 09/23/18 Findings: + NAD
--- NOTE | 2018-09-23 12:05 | XRay Report ---
XR chest Pre-admission PA/Lat CLINICAL HISTORY: pat preoperative evaluation COMPARISON STUDY: 08/28/2016 FINDINGS: The bones soft tissues and hemidiaphragms are normal. The cardiomediastinal silhouette is n ormal. The lungs are clear. The pulmonary vasculature is normal. IMPRESSION: Negative chest. The above report was generated using voice recognition software. It may contain grammatical, syntax or spelling errors. Electronically signed by: Scooter Melendez M.D. 09/23/2018 12:04 PM
[2018-09-23 12:27] LABS: Basophils # (auto) 0.01 K/uL (0-0.2); Basophils % (auto) 0.2 %; Eosinophils # (auto) 0.02 K/uL (0-0.5); Eosinophils % (auto) 0.4 %; Hematocrit (blood only) 36.7 % (37-47); Hemoglobin 12.3 g/dL (12.0-16.0); Immature Granulocytes # (auto) 0.01 K/uL (0.00-0.02); Immature Granulocytes % (auto) 0.2 %; Lymphocytes # (auto) 1.13 K/uL (1.2-3.4); Lymphocytes % (auto) 25.1 %; Mean Corpuscular Hgb Conc 33.5 g/dL (32-36); Mean Corpuscular Volume 91.3 fL (80-100); Mean Platelet Volume 10.2 fL (7.4-10.4); Monocytes # (auto) 0.35 K/uL (0.11-0.59); Monocytes % (auto) 7.8 %; Neutrophils # (auto) 2.98 K/uL (1.4-6.5); Neutrophils % (auto) 66.3 %; Platelet Count 236 K/uL (130-400); RDW Coefficient of Variation 14.1 % (11.5-14.5); RDW Standard Deviation 47.6 fL (36.4-46.3); Red Blood Count 4.02 M/uL (4.2-5.4)
[2018-09-23 12:32] LABS: Appearance Urine Clear (Clear); Bilirubin Urine Negative (Negative); Blood Urine Negative (Negative); Color Urine Yellow; Glucose Urine UA Negative (Negative); Ketones Urine Negative (Negative); Leukocyte Esterase Urine Negative (Negative); Nitrite Urine Negative (Negative); Protein Urine Negative (Negative); Specific Gravity Urine 1.024 (1.000-1.030); Urobilinogen Urine Negative (Negative); pH Urine 6.5 (4.5-7.5)
[2018-09-23 12:33] LABS: BUN Creatinine Ratio 26.3 (10-20); Creatinine Clr Calc Pharmacy 114.1 ml/min; Est GFR (African American) 116.2; Est GFR (Non-African American) 100.3; Potassium 4.2 mmol/L (3.5-5.1)
[2018-09-23 12:41] LABS: Estimated Average Glucose 103 mg/dl; Hemoglobin A1C 5.2 % (4.5-5.6)
[2018-09-23 12:45] LABS: INR 0.9 (0.9-1.1); Partial Thromboplastin Time 25.9 Seconds (21.0-31.0); Prothrombin Time 9.5 Seconds (9.0-12.0)
--- NOTE | 2018-10-10 16:37 | History & Physical Report ---
Date of Service October 10, 2018 Assessment & Plan (1) Primary osteoarthritis of knee: I have indicated the patient for right total knee replacement. The risks, benefits and complications of surgery were explained to the patient which include but not limited to infection, acute blood loss, DVT/PE, injury to nerves, vessels, bone, soft tissue, arthrofibrosis, chronic pain, failure of the prosthesis, knee dislocation, leg length discrepancy, need for additional surgery, cardiac and pulmonary events and . The patient wished to proceed with surgery and informed consent was obtained at this time. We will plan for ASA BID post-operatively for DVT prophylaxis. Upon discharge the patient will be discharged home with home health services. Appropriate clearances by PCP were obtained. History of Present Illness Chief Complaint: Right knee pain/djd Primary Care Provider: Mario Chavez MD The patient is a 57 year old female who presents with complaints of severe right knee pain and DJD. The patient has failed outpatient conservative treatments to this point which included NSAIDs, corticosteroid and CAMPOS injections, home exercise/walking program. The patient's pain and limited function have progressed to the point where they severely hinder their activities of daily living and they no longer tolerate exercise programs. They are requesting to proceed with total knee replacement surgery. Allergies Allergy/AdvReac Type Severity Reaction Status Date / Time No Known Allergies Allergy Verified 10/11/18 09:27 Home Medications Home Medications Medication Instructions Recorded Confirmed Type losartan 100 mg PO QAM 08/19/18 10/11/18 History Past Med/Surg History Medical History Hypertension Migraine HX Obesity Osteoarthritis Surgical History History of section X4 History of tooth extraction Social History Preferred Language: Citizen Of [place] Communication Ability: Effective Molding Room Supervisor Required: No Beliefs That Will Affect Care: None Current Living Situation: Family Other Information That Helps Us Care for You: No Feels Safe at Home: Yes Safety Concerns: Feels Safe At This Time Smoking Status: Never smoker Do You Dip or Chew Tobacco: No Second Hand Exposure: No Tobacco Cessation Education Requested by Patient: No Hx Alcohol Use: Yes Alcohol type: hard liquor Hx Substance Use: No Review of Systems Review of Systems: All systems reviewed & are unremarkable except as noted in HPI & below Constitutional: as per Subjective / HPI Physical Exam Physical Exam: RLE NVSI +EHL/FHL/TA/GS SILT grossly, +2 DP pulse, compartments soft NT, limited painful ROM, 0-115 degrees, crepitus. Constitutional: WD/WN, vitals as above Eyes: PERRL, conjunctivae normal, anicteric sclerae ENMT: external ear and nose normal, oropharynx normal Neck: trachea midline, no thyromegaly Respiratory: normal respiratory effort, lungs clear to auscultation Cardiovascular: RRR, no murmur, no edema Gastrointestinal (Abdomen): normal bowel sounds, soft, nontender, no hepatosplenomegaly Musculoskeletal: no cyanosis or clubbing, extremities motor strength 5/5 Skin: no rashes, warm and dry Neurologic: patellar DTR's 2+ bilat, sensation intact Psychiatric: A+Ox3, euthymic affect Lymphatic: no cervical or axillary lymphadenopathy Results & Data Diagnostic Findings Multiple views of the knee demonstrates severe tricompartmental DJD with complete loss of the medial and patellorfemoral joint space. +osteophytes, +sclerosis, +subchondral cysts.
[~2018-10-11 08:56] MED LIST changes: +ACETAMINOPHEN 500 MG TAB PO SCH; +BUPIVACAINE 0.5 % 5 MG/1 ML PF 10ML VIAL ONE; +CEFAZOLIN 2000MG 2,000 MG/15 ML SYR IV SCH; +CeleBREX 200 MG CAP PO SCH; +FAMOTIDINE 20 MG TAB PO SCH; +GABAPENTIN 300 MG x 2 PO SCH; -LISI-461 PO; +LR 500ML BOLUS, THEN 15ML/HR IV SCH; +METOCLOPRAMIDE HCL 10 MG TABLET PO SCH; +ROPIVACAINE 0.5% 5 MG/ML 30 ML VIAL ONE; +ROPIVACAINE 0.5% HCL/PF 150 MG, BUPIVACAINE 0.5% MPF 30 ML, EPINEPHrine 30MG/30ML (OR U... INFIL SCH; +TRANEXAMIC ACID 1,000 MG **IV Intra-op IV SCH; +TRANEXAMIC ACID 1,000 MG **IV Pre-op IV SCH; +dexAMETHasone 4 MG TAB PO SCH; +fentaNYL citrate 100 MCG/2 ML VIAL ONE
--- OUTSIDE RECORDS SUMMARY | 2018-10-11 09:00 | External Medical Summary | Continuity of Care Document ---
:1960 Author Name Brandy Cornejo Address Unavailable Unavailable , Care Team Providers Name Role Phone Pallavi Welsh M.D. Unavailable [email or web address] TATE Unavailable Unavailable Problems Active medical history not documented Allergies and Adverse Reactions Allergy history not documented Medications Medications not documented Procedures Procedures not documented Immunizations Immunizations not documented Plan of Treatment Planned Observations Planned Goals not documented Results No Known Results Results not documented Encounters Appointment; Echo/Stress, Echo/Stress 07-Oct-2018 13:00 Encounter Diagnosis: Problem not documented
[2018-10-11] MEDS ORDERED: ORTHO JOINT ANESTHETIC ONE (10:05)
[2018-10-11] MEDS ORDERED: BACITRACIN INJ 50,000 UNIT VIAL ONE (10:05)
[2018-10-11] MEDS ORDERED: POVIDONE-IODINE OP SOLN 30 ML BTL ONE (10:05)
--- NOTE | 2018-10-11 10:27 | History & Physical Bridge Note ---
Date of Service October 11, 2018 History & Physical Bridge Note I have examined the patient, reviewed the History & Physical and in the interval since the performance of the History & Physical I have noted the following changes of clinical significance: no changes noted
[2018-10-11] MEDS ORDERED: MIDAZOLAM HCL 1 MG/ML 2ML VIAL ONE (11:19)
[2018-10-11] MEDS ORDERED: LIDOCAINE HCL 2% 2 ML VIAL/AMP(20MG/ML) INFIL ONE (11:38)
[2018-10-11] MEDS ORDERED: PROPOFOL IV EMULSION 10 MG/ML 20 ML VIAL IV ONE ×2 (11:38→12:23)
[2018-10-11] MEDS ORDERED: ONDANSETRON INJ 2 MG/ML 2 ML VIAL ONE (11:53)
--- NOTE | 2018-10-11 12:20 | Operative Report ---
Post Operative Report Pre & Post Diagnosis Operation Date: 10/11/18 11:00 Pre-Op Diagnosis: Right knee degenerative joint disease Post-Op Diagnosis: Right knee degenerative joint disease Operation Date: 10/21/18 08:30 <No data on this case meets the specified criteria> Procedure Operation Date: 10/11/18 11:00 Actual Procedures p Right Total Knee Arthroplasty, Cemented(Right) - Brendon Olivares DO Operation Date: 10/21/18 08:30 <No data on this case meets the specified criteria> Surgeon Brendon Olivares DO Air Cargo Specialist Supervisor Aiden Malave Estimated Blood Loss 55 Findings Consistent with Post-Op Diagnosis Fluids 1700 cc LR Specimens Proximal tibia distal femur bone fragments Anesthesia Type Spinal MAC Complications none Disposition Disposition: Recovery Room Indications The patient is a 58-year-old female presents with long history of severe right knee tricompartmental DJD and failed outpatient conservative treatments including NSAIDs, bracing, injections and home walking/exercise program. The patient's symptoms have progressed to the point where it has been difficult to perform normal activities of daily living. I have indicated the patient for a right total knee arthroplasty, the risks and benefits and complications of the procedure include but are not limited to infection bleeding damage to bone, nerves, vessels, surrounding soft tissue, blood clots, loss of function, leg length discrepancy, dislocation, failure of the components, need for additional surgery and . The patient wished to proceed with surgery at this time and informed consent was obtained. Appropriate clearances were obtained. Description of Procedure COMPONENTS USED: Brenda persona knee system: Femur size 7 standard, Tibia size E tibial articulating surface 14 PS, Patella 29 Following induction of spinal anesthesia, a tourniquet was applied to the proximal aspect of the thigh and the patient's right leg was prepped and draped in the usual sterile manner. A timeout was performed, patient identified and site bette confirmed. Appropriate pre-operative IV antibiotics were given. The limb was exsanguinated with an Esmarch bandage and tourniquet was inflated to 300 mmHg. A longitudinal midline incision was made over the anterior knee. Subcutaneous tissue was sharply dissected down to fascia. Electrocautery was used for hemostasis. Next a parapatellar arthrotomy was performed. Patella was everted and the knee was flexed. A Penn retractor was used to expose the synovium above on the anterior aspect of the femur and removed down to bone. Next, the anterior fat pad was removed to aid in visualization. The medial face of the tibia was cleared of soft tissue first with a Bovie and a waterman elevator. This tissue was retracted posteriorly using a blunt Hohmann. Next, the extra-medullary tibial cutting guide was placed to the anterior aspect of the tibia. The tibia resection level was set taking 2mm from the defective tibial condyle. Resection depth was once again confirmed with alexandra wing. The medial and lateral collateral ligament was protected with two Hohmann retractors. The tibia guide was removed and proximal tibial bone fragment removed utilizing straight osteotome, electrocautery and Kimmie. Next, the distal femur intramedullary canal was accessed utilizing the step drill. The intramedullary distal femur cutting guide was placed into the canal and pinned into place. The distal femur was cut on the 5 degree +0 setting. Next the cutting guide was removed and the femur was sized. Care was taken to ensure appropriate heel edge inker machine all rotation and 3 degree holes were drilled. A size 7 4-in-1 cutting block was placed on the distal end of the femur and secured into place with two short headed screws. Two bent Hohmann retractors were placed to protect the medial and lateral collateral ligaments. The oscillating saw was used to cut anterior, posterior, anterior chamfer and posterior chamfer. The four and one cutting block was removed and bone fragments excised. Laminar kinder teacher was placed laterally and the ACL and PCL were removed followed by the medial meniscus and posterior medial osteophytes. Aquamantys was utilized for any posterior medial bleeders and Orthomix injected into the posterior medial capsule. A laminar kinder teacher was then placed in the medial compartment and the lateral meniscus and posterior osteophytes were removed. Aquamantys was utilized for any posterior lateral bleeders and Orthomix injected into the posterior lateral capsule. Next, drop chikis and spacer block were placed with the leg in flexion and extension to assess alignment and flexion/extension gaps. Next, the proximal tibia was assessed and two bent Hohmans were placed medial and lateral to aid in visualization. The appropriate tibia size and rotation was selected and a size E tibial plate was pinned into place with appropriate rotation. Preparation of the tibia was completed utilizing the matching tibial drill and broach. I then turned my attention back to the distal femur in a trial femoral component was impacted into place. Appropriate femoral width was assessed and selected. Next the femur PS box cut guide was placed and cut made with the reciprocal saw and the PS box provisional placed. A trial size 12 PS tibia articular tray was placed and varus-valgus balance assessed in 0 degrees of extension and 30, 60 and 90 degrees of flexion. Sequential testing in 1 mm increments were done. A final tibial articular surface size 14 PS was chosen. Assess was gained to the patella and caliper utilized to measure width. The patella reamer was utilized and remaining bone removed with oscillating saw. A size 29 patella button was selected and the patella pegs drilled. Trial patella button was placed and tracking was assessed. The knee was found to be well balanced, well aligned with excellent patella tracking. The trials were removed and final components were obtained and assembled. The knee was irrigated copiously with sterile saline solution mixed with bacitracin. Access to the proximal tibia was once again obtained utilizing to the Hohmans and the proximal tibia and distal femur were dried with lap sponges. The final components were cemented into place and all excess cement was removed. A trial tibial articular surface was placed while cemented hardened. Knee stability was once again assessed and the final component inserted. A Betadine soak was performed. After 3 minutes, the hip was once more irrigated with copious sterile saline solution with bacitracin. The knee was injected with the remaining Orthomix which includes a combination of Ropivicaine 0.5% 150mg, Bupivicaine 0.5%/Epinephrine 1:200,000 30ml, Toradol 30mg, Dexamethasone 4mg, Ketamine 10mg, Clonidine 100mcg and NSS 30ml solution. The capsulotomy was closed with #1 Vicryl followed by subcutaneous closure with 2-0 Vicryl suture and a 3-0 V-lock suture. Skin closure was performed using Prineo dressing followed by Rafi, 4 x 4s and rona wrap. Tourniquet was deflated at [ ] minutes. The patient tolerated the procedure well and was taken to the PACU in stable condition. Due to the complex nature of the procedure, the entire surgery was performed with the operational assistance of Aiden Malave PA-C. The kindergarten instructional assistant, under direct supervision, was involved in the actual performance of all aspects of the surgical procedure including patient positioning, hemostasis, tissue retraction, instrument management and wound closure. I attest to the content of the Intraoperative Record and any orders documented therein. Any exceptions are noted below.
--- NOTE | 2018-10-11 12:20 | Post Operative Brief Note ---
Immediate Post Op Note v1 Date of Surgery October 11, 2018 Pre & Post Diagnosis Operation Date: 10/11/18 11:00 Pre-Op Diagnosis: Right knee degenerative joint disease Post-Op Diagnosis: Right knee degenerative joint disease Operation Date: 10/21/18 08:30 <No data on this case meets the specified criteria> Procedure Operation Date: 10/11/18 11:00 Actual Procedures p Right Total Knee Arthroplasty, Cemented(Right) - Brendon Olivares DO Operation Date: 10/21/18 08:30 <No data on this case meets the specified criteria> Surgeon Brendon Olivares DO Invertebrate Paleontologist Aiden Malave Estimated Blood Loss 55 Findings Consistent with Post-Op Diagnosis Fluids 1700 cc LR Specimens proximal tibia/distal femur bone fragments Anesthesia Type Spinal MAC Complications none Disposition Disposition: Recovery Room Overlapping Procedure I was present for: the critical portions of procedure. I was immediately available: during the entire case. Back up surgeon: was not required during procedure.
--- NOTE | 2018-10-11 13:19 | Orthopedic Progress Note ---
Date of Service October 11, 2018 Assessment & Plan (1) Primary osteoarthritis of knee: Status post right total knee arthroplasty -Ancef x24 -DVT prophylaxis: SCDs, teds, ASA twice daily -Weight-bear as tolerated right lower extremity -PT/OT -Postoperative x-ray pending -A.m. labs -DC planning home with home health Subjective Post Operative Progress Note Patient seen in PACU, comfortable, denies complaints, pain well controlled, no acute issues. Still feeling the effects of spinal anesthesia. Review of Systems Review of Systems: All systems reviewed & are unremarkable except as noted in HPI & below Constitutional: as per Subjective / HPI Physical Exam Physical Exam: Right lower extremity physical exam limited secondary to spinal anesthesia, +2 dorsalis pedis pulse, compartment soft nontender, dressing clean dry and intact. Constitutional: WD/WN, vitals as above Results & Data Vital Signs (Past 12 Hours) Vital Signs Temp Pulse Pulse Resp BP Pulse Ox 10/11/18 13:15 61 16 117/74 100 10/11/18 13:05 58 L 15 117/76 100 10/11/18 12:58 36.0 C L 59 L 12 109/63 100 10/11/18 09:34 37.4 C 65 18 134/78 98
--- NOTE | 2018-10-11 13:27 | XRay Report ---
XR knee RT 2V routine HISTORY: 57 years-old Female Surgical Post Op right knee total joint arthroplasty. History of degene rative joint disease. COMPARISON: Right knee radiographs 10/04/2015 TECHNIQUE: 2 views of the right knee FINDINGS: Right knee total joint arthroplasty and patella resurfacing. There is satisfactory alignment without acute fracture or retained foreign body. Expected postsurgical soft tissue swelling and deep tissue a ir with surgical drainage catheter. IMPRESSION: Right knee total joint arthroplasty and patella resurfacing demonstrates satisfactory ali gnment. The above report was generated using voice recognition software. It may contain grammatical, syntax o r spelling errors. Electronically signed by: Demar Craft M.D. 10/11/2018 1:26 PM
[2018-10-11] MEDS ORDERED: NALOXONE HCL 0.4 MG/1 ML VIAL/CARP IV PRN (13:51)
[2018-10-11] MEDS ORDERED: ONDANSETRON INJ 2 MG/ML 2 ML VIAL IV PRN (13:51)
[2018-10-11] MEDS ORDERED: HYDROmorphone INJ 0.5 MG/0.5 ML SYR IV PRN (13:51)
[2018-10-11] MEDS ORDERED: METOCLOPRAMIDE HCL INJ 5 MG/ML 2 ML VIAL IV PRN (13:51)
[2018-10-11] MEDS ORDERED: MAGNESIUM HYDROXIDE SUSP 30 ML UDC PO PRN (13:51)
[2018-10-11] MEDS ORDERED: BISACODYL 10 MG SUPP PR PRN (13:51)
--- NOTE | 2018-10-11 15:27 | Anesthesiology Progress Note ---
Date of Service October 11, 2018 Anesthesia Post Procedure Vital Signs Vital Signs: Temp Pulse Pulse Pulse Resp BP Pulse Ox 10/11/18 14:40 67 16 134/86 100 10/11/18 14:11 59 L 16 125/82 99 10/11/18 13:40 36.4 C L 55 L 16 117/79 100 10/11/18 13:25 36.3 C L 56 L 20 117/69 100 10/11/18 13:15 61 16 117/74 100 10/11/18 13:05 58 L 15 117/76 100 10/11/18 12:58 36.0 C L 59 L 12 109/63 100 10/11/18 09:34 37.4 C 65 18 134/78 98 Pain Intensity Right Knee: Pain Intensity: 0 Transfer of Care Handoff Completed per policy Notes Mental Status: alert / awake / arousable and participated in evaluation Nausea / Vomiting: adequately controlled Pain: adequately controlled Airway Patency, RR, SpO2: stable & adequate BP & HR: stable & adequate Hydration State: stable & adequate Neuraxial Anesthesia: was administered and sensory block is resolving Anesthetic Complications: no major complications apparent and Pt Satisfied with anesthetic care
[2018-10-11] MEDS: SODIUM CHLORIDE 0.9% 1000ML 1,000 ML IV SCH (15:30)
[2018-10-11] MEDS: ACETAMINOPHEN 500 MG TAB PO SCH ×2 (16:11→22:10)
[2018-10-11] MEDS: KETOROLAC 30 MG/ML VIAL IV SCH ×2 (16:11→22:10)
[2018-10-11] MEDS: CEFAZOLIN 2000MG 2,000 MG/15 ML SYR IV SCH (18:30)
[2018-10-11] MEDS: OXYCODONE HCL IR 5 MG TAB (IMMEDIATE RELEASE) PO PRN (18:30)
[2018-10-11] MEDS: SENNA 8.6 MG TAB PO SCH (22:10)
[2018-10-11] MEDS: DOCUSATE SODIUM 100 MG CAP PO SCH (22:10)
[2018-10-12] MEDS: OXYCODONE HCL IR 5 MG TAB (IMMEDIATE RELEASE) PO PRN ×4 (00:52→21:03)
[2018-10-12] MEDS: KETOROLAC 30 MG/ML VIAL IV SCH ×2 (03:22→10:48)
[2018-10-12] MEDS: CEFAZOLIN 2000MG 2,000 MG/15 ML SYR IV SCH (03:22)
[2018-10-12] MEDS: ACETAMINOPHEN 500 MG TAB PO SCH ×3 (05:39→22:11)
[2018-10-12 06:19] LABS: Hematocrit (blood only) 31.9 % (37-47); Hemoglobin 10.4 g/dL (12.0-16.0); Mean Corpuscular Hgb Conc 32.6 g/dL (32-36); Mean Corpuscular Volume 92.5 fL (80-100); Mean Platelet Volume 10.6 fL (7.4-10.4); Platelet Count 163 K/uL (130-400); RDW Standard Deviation 47.5 fL (36.4-46.3); Red Blood Count 3.45 M/uL (4.2-5.4); White Blood Count 8.33 K/uL (4.8-10.8)
[2018-10-12 06:53] LABS: BUN Creatinine Ratio 23.9 (10-20); Calcium 8.6 mg/dl (8.5-10.1); Creatinine Clr Calc Pharmacy 99.9 ml/min; Est GFR (African American) 108.5; Est GFR (Non-African American) 93.6; Potassium 4.1 mmol/L (3.5-5.1)
[2018-10-12] MEDS: DOCUSATE SODIUM 100 MG CAP PO SCH ×2 (08:43→21:00)
[2018-10-12] MEDS: LOSARTAN POTASSIUM 50 MG TAB PO SCH (08:43)
[2018-10-12] MEDS: MULTIVITAMIN TAB PO SCH (08:43)
[2018-10-12] MEDS: ASPIRIN 325 MG ECTAB PO SCH ×2 (08:44→20:59)
--- NOTE | 2018-10-12 10:11 | Anesthesiology Progress Note ---
Date of Service October 12, 2018 Anesthesia Post Procedure Vital Signs Vital Signs: Temp Pulse Pulse Resp BP Pulse Ox 10/12/18 07:47 36.5 C 58 L 18 133/81 99 10/12/18 04:30 36.5 C 54 L 16 121/70 97 10/11/18 23:25 36.5 C 51 L 16 136/80 98 10/11/18 19:07 36.8 C 62 16 155/94 H 98 10/11/18 16:38 61 15 139/84 97 10/11/18 15:39 61 16 136/86 95 10/11/18 14:40 67 16 134/86 100 10/11/18 14:11 59 L 16 125/82 99 10/11/18 13:40 36.4 C L 55 L 16 117/79 100 10/11/18 13:25 36.3 C L 56 L 20 117/69 100 10/11/18 13:15 61 16 117/74 100 10/11/18 13:05 58 L 15 117/76 100 10/11/18 12:58 36.0 C L 59 L 12 109/63 100 Pain Intensity Right Knee: Pain Intensity: 0 Notes Mental Status: alert / awake / arousable and participated in evaluation Nausea / Vomiting: adequately controlled Pain: adequately controlled Airway Patency, RR, SpO2: stable & adequate BP & HR: stable & adequate Hydration State: stable & adequate Neuraxial Anesthesia: sensory block resolved
--- NOTE | 2018-10-12 10:38 | Orthopedic Progress Note ---
Date of Service October 12, 2018 Assessment & Plan (1) Primary osteoarthritis of knee: Status post right total knee arthroplasty POD#1 -Ancef x24 -DVT prophylaxis: SCDs, teds, ASA twice daily -Weight-bear as tolerated right lower extremity -PT/OT -Postoperative x-ray demonstrates a well aligned well fixed orthopedic prosthesis without evidence of fracture dislocation. -A.m. labs hgb 10.4 -Foot drop, will continue to monitor, dressing released and knee flexed, reassurance provided, if persistent will obtain AFO upon discharge. -DC planning home with home health Subjective Post Operative Progress Note Patient seen in PACU, comfortable, denies complaints, pain well controlled, no acute issues. Still feeling paraesthesia and weakness RLE Review of Systems Review of Systems: All systems reviewed & are unremarkable except as noted in HPI & below Constitutional: as per Subjective / HPI Physical Exam Physical Exam: RLE NVSI FHL/GS, decreased sensation over SPN distribution, +foot drop, +2 DP pulse, compartments soft NT, dressing cdi. Constitutional: WD/WN, vitals as above Results & Data Vital Signs (Past 12 Hours) Vital Signs Temp Pulse Resp BP Pulse Ox 10/12/18 07:47 36.5 C 58 L 18 133/81 99 10/12/18 04:30 36.5 C 54 L 16 121/70 97 10/11/18 23:25 36.5 C 51 L 16 136/80 98
[2018-10-12] MEDS: SODIUM CHLORIDE 0.9% 1000ML 1,000 ML IV SCH (19:54)
[2018-10-12] MEDS: CeleBREX 200 MG CAP PO SCH (20:59)
[2018-10-12] MEDS: SENNA 8.6 MG TAB PO SCH (21:00)
[2018-10-13] MEDS: OXYCODONE HCL IR 5 MG TAB (IMMEDIATE RELEASE) PO PRN ×2 (04:39→09:12)
[2018-10-13] MEDS: ACETAMINOPHEN 500 MG TAB PO SCH (05:44)
[2018-10-13 06:03] LABS: Hematocrit (blood only) 29.2 % (37-47); Hemoglobin 9.7 g/dL (12.0-16.0); Mean Corpuscular Hgb Conc 33.2 g/dL (32-36); Mean Corpuscular Volume 93.6 fL (80-100); Mean Platelet Volume 10.8 fL (7.4-10.4); Platelet Count 133 K/uL (130-400); RDW Coefficient of Variation 14.3 % (11.5-14.5); RDW Standard Deviation 48.5 fL (36.4-46.3); Red Blood Count 3.12 M/uL (4.2-5.4)
[2018-10-13 06:33] LABS: Calcium 8.4 mg/dl (8.5-10.1); Creatinine Clr Calc Pharmacy 102.7 ml/min; Est GFR (African American) 112.3; Est GFR (Non-African American) 96.9; Potassium 3.9 mmol/L (3.5-5.1)
[2018-10-13] MEDS: ASPIRIN 325 MG ECTAB PO SCH (08:14)
[2018-10-13] MEDS: MULTIVITAMIN TAB PO SCH (08:14)
[2018-10-13] MEDS: LOSARTAN POTASSIUM 50 MG TAB PO SCH (08:14)
[2018-10-13] MEDS: CeleBREX 200 MG CAP PO SCH (08:14)
[2018-10-13] MEDS: DOCUSATE SODIUM 100 MG CAP PO SCH (08:15)
--- NOTE | 2018-10-13 10:08 | Orthopedic Progress Note ---
Date of Service October 13, 2018 Assessment & Plan (1) Primary osteoarthritis of knee: Status post right total knee arthroplasty POD#2 -Ancef x24 -DVT prophylaxis: SCDs, teds, ASA twice daily -Weight-bear as tolerated right lower extremity -PT/OT -Postoperative x-ray demonstrates a well aligned well fixed orthopedic prosthesis without evidence of fracture dislocation. -A.m. labs hgb 9.7 -Foot drop, resolved -DC planning home with home health POD#1 -Ancef x24 -DVT prophylaxis: SCDs, teds, ASA twice daily -Weight-bear as tolerated right lower extremity -PT/OT -Postoperative x-ray demonstrates a well aligned well fixed orthopedic prosthesis without evidence of fracture dislocation. -A.m. labs hgb 10.4 -Foot drop, will continue to monitor, dressing released and knee flexed, reassurance provided, if persistent will obtain AFO upon discharge. -DC planning home with home health Subjective Post Operative Progress Note Patient seen sitting up in bed, comfortable, denies complaints, pain well controlled, no acute issues. Review of Systems Review of Systems: All systems reviewed & are unremarkable except as noted in HPI & below Physical Exam Physical Exam: RLE NVSI +EHL/FHL/TA/GS SILT grossly, +2 DP pulse, compartments soft NT, dressing cdi. foot drop resolved Constitutional: WD/WN, vitals as above Results & Data Vital Signs (Past 12 Hours) Vital Signs Temp Pulse Pulse Resp BP Pulse Ox 10/13/18 07:45 36.6 C 73 20 136/88 98 10/13/18 06:06 36.7 C 65 16 108/73 97 10/12/18 23:51 36.6 C 65 18 122/73 97
--- NOTE | 2018-10-14 11:21 | Discharge Summary ---
Date of Service October 14, 2018 Admission HPI Per Admitting Provider The patient is a 57 year old female who presents with complaints of severe right knee pain and DJD. The patient has failed outpatient conservative treatments to this point which included NSAIDs, corticosteroid and CAMPOS injections, home exercise/walking program. The patient's pain and limited function have progressed to the point where they severely hinder their activities of daily living and they no longer tolerate exercise programs. They are requesting to proceed with total knee replacement surgery. Principal Diagnosis Right total knee replacement Discharge Exam RLE NVSI +EHL/FHL/TA/GS SILT grossly, +2 DP pulse, compartments soft NT, dressing cdi. Constitutional WD/WN, vitals as above Discharge Data Allergies Allergy/AdvReac Type Severity Reaction Status Date / Time No Known Allergies Allergy Verified 10/11/18 09:27 Consultations 10/11/18 13:51 Consult Case Management - Discharge Planning Routine Procedures Performed Operation Date: 10/11/18 11:00 Actual Procedures p Right Total Knee Arthroplasty, Cemented(Right) - Brendon Olivares DO Operation Date: 10/21/18 08:30 <No data on this case meets the specified criteria> Ordered Studies 10/11/18 05:00 US - OR guided needle placemen Routine Hospital Course (1) Primary osteoarthritis of knee: The patient is a 57 -year-old female who presents with long standing history of severe right knee DJD and failed outpatient conservative treatments including NSAIDs, bracing, injections and home walking/exercise program. The patient's symptoms have progressed to the point where it has been difficult to perform even normal activities of daily living. I indicated the patient for a right total knee arthroplasty, the risks, benefits and complications of the procedure include but not limited to infection, bleeding, damage to bone, nerves, vessels, surrounding soft tissue, may develop blood clots, loss of function, leg length discrepancy, dislocation, failure of the components, loosening of the components, the need for additional surgery and . The patient wished to proceed with surgery at this time and informed consent was obtained. Hospital Course: On 10/11/18 the patient was taken to the operating room, adequate anesthesia administered and underwent a right total knee arthroplasty. The patient mendy erated the procedure well and was taken to the PACU in stable condition. Post- operatively the patient was started on a DVT ppx medication and given appropriate IV antibiotics. Consults were placed to physical therapy, occupational therapy and case management. On POD#1, the patient did well overnight and their pain was well controlled. Labs were drawn and the Hgb was 10.4. The patient progressed well with PT. She did have RLE foot drop once spinal anesthesia had warn off. As the day went on, her foot drop resolved, likely secondary to local anesthesia. On POD#2, the patient continued to do well with PT, foot drop completely resolved, hgb was 9.7. Dressings were changed at this time and the incision was clean, dry and intact. The patients hospital stay was relatively uneventful and they were deemed stable by the orthopedic team and consultants to be discharged home with on 10/13/18. Discharge Instructions: Upon discharge the patient may weight bear as tolerates through their operative extremity. They were instructed to keep the incision clean and dry at all times. The patient may shower but should not submerge the incision, avoid bathing, pools and hot tubes. The patient was given a script for pain medication and should take as instructed. The patient was given a script for DVT ppx 325mg ASA BID and should take as directed. The patient was instructed to not drive or travel for long distances until cleared to do so. If the patient develops any symptoms of fevers, chills, nausea, vomiting, increased redness, swelling, pain or drainage from the surgical site, they should notify the office and/or proceed to the nearest emergency room. The patient should follow up in 10-14 days after surgery for their routine post-operative follow-up appointment and should call the office to confirm the date and time. Status post right total knee arthroplasty POD#2 -Ancef x24 -DVT prophylaxis: SCDs, teds, ASA twice daily -Weight-bear as tolerated right lower extremity -PT/OT -Postoperative x-ray demonstrates a well aligned well fixed orthopedic prosthesis without evidence of fracture dislocation. -A.m. labs hgb 9.7 -Foot drop, resolved -DC planning home with home health POD#1 -Ancef x24 -DVT prophylaxis: SCDs, teds, ASA twice daily -Weight-bear as tolerated right lower extremity -PT/OT -Postoperative x-ray demonstrates a well aligned well fixed orthopedic prosthesis without evidence of fracture dislocation. -A.m. labs hgb 10.4 -Foot drop, will continue to monitor, dressing released and knee flexed, reassurance provided, if persistent will obtain AFO upon discharge. -DC planning home with home health Total Time Total Time Spent Total Time Spent (In Minutes): >60 minutes Total Time Includes: Examination of the Patient, Discharge Planning, Medication Reconciliation and Communication With Other Providers Discharge Plan Discharge Items Patient Disposition: Home - Home Health Services Reason For Visit: Unilateral Primary Osteoarthritis, Right Knee Discharge Diagnosis: Right total knee replacement Condition: Good Discharge Goals: Decrease discomfort, Improve function, Increase independence and Therapeutic intervention Activity: Per 'Additional Instructions' section Lifting: Wait until after follow-up appointment Bathing Comment: No bathing, pools or hot tubs Sexual Activity: Wait until after follow-up appointment Exercise/Sports: Wait until after follow-up appointment Driving/Machine Use Comment: No driving till cleared by your surgeon Weightbearing: Right weightbearing Non-emergency contact: Primary Care Provider and Surgeon Call non-emergency contact if: you have any medication questions, your symptoms worsen, your pain is not controlled, your pain is worsening, your pain is unusual for you, your pain is concerning for you, you have a fever, your temperature is above 101, your wound has increased redness, your wound has increased drainage and your wound pain has increased Follow-up/Referrals: Mario Chavez MD [Primary Care Provider] - Diet: Regular Addtl Provider Instructions: ACTIVITY RECOMMENDATIONS: SELF CARE INSTRUCTIONS AFTER TOTAL KNEE REPLACEMENT A. You may need to continue a physical therapy program after discharge from the hospital. There are several options available to you. Your doctor will assist you in selecting the best one for you. 1. An out-patient facility 2 to 3 times a week for therapy or home therapy. 2. Continue working on all exercises taught to you in the hospital. Your goals should be to increase bending of your knee to 90 degrees and beyond and to fully straighten your knee. B. You may progress at your own pace from walking with a walker or crutches to a cane; then to no assistive devices. C. Make walking a part of your daily routine. Be up as much as comfortable with rest periods throughout the day. Rest with leg elevation is very important. Use the ice wrap frequently for the first 3-4 weeks. D. There are no restrictions on activities. You may ride in a car, shop, participate in rn palliative and all social activities. E. Wear the long elastic stockings (RACHEL hose) 20 hours a day for 2 weeks after surgery. They can be removed several times a day for laundering and for a bath. F. You may shower, no tub baths until cleared by your doctor. SPECIAL CARE INSTRUCTIONS: VERY IMPORTANT TO READ AND REVIEW A. There are a few signs you need to watch for after you are home. Call [facility] if you notice any of the followin. Increased severe knee pain. Some pain is expected especially when you exercise. 2. Increased swelling in your leg or knee; pain or swelling of the calf muscle in either lower leg. 3. Any fluid drainage from the incision. 4. Shortness of breath or chest pain. B. Please call [facility] at if you have any concerns or questions about your operation or recovery. The doctor or his nurse will return your call promptly. C. You must take antibiotics before dental work, bladder, bowel or other surgery. Your doctor will provide you with a permanent care to carry describing this precaution. IMPORTANT: * REMEMBER TO TAKE ASPIRIN, 325 MG, TWICE DAILY FOR 4 WEEKS UNLESS OTHERWISE DIRECTED. THIS IS YOUR BLOOD THINNER. * HIGH RISK PATIENTS MAY BE PRESCRIBED A STRONGER BLOOD THINNER. THIS WILL BE PROVIDED AT DISCHARGE. * CALL IF INCREASED PAIN, REDNESS, DRAINAGE OR FEVER GREATER THAT 101. * WEAR RACHEL HOSE 20 HOURS PER DAY FOR 2 WEEKS. *DERMABOND Prineo- This is a mesh tape dressing that is covered with glue. It should remain in place until the incision is properly healed, usually 10-14 days. This dressing is designed to naturally slough off. You may trim the excess mesh tape as it peels off. Incision may be briefly wet in a shower. Dry immediately by blotting with a clean, dry towel. Do not bath or swim until instructed by your doctor. Do not scratch, rub, or pick at the dressing. Do not apply any topical ointments or lotions until dressing is completely removed and/or instructed by your doctor. There may be a small piece of suture material at one end of your incision. Do not pull or trim this. If it is bothersome or catching on clothing, you may cover it with a band-aid. * YOU MAY HAVE A LARGE BAND-AID LIKE DRESSING (SILVERON). THIS WILL REMAIN ON YOUR INCISION FOR 7 DAYS, THEN CAN BE REMOVED. IF INCISION IS LEAKING THROUGH DRESSING, CALL THE OFFICE . FOLLOW UP VISIT: If appointment is not already scheduled: Please call [facility] to make a follow-up appointment for 2 weeks after your surgery at . Prescriptions: New celecoxib [Celebrex] 200 mg Capsule 200 mg PO BID PRN (Reason: pain) Qty: 28 RF: 0 acetaminophen [Tylenol Extra Strength] 500 mg Tablet 1,000 mg PO Q8 PRN (Reason: pain) Qty: 90 RF: 0 aspirin 325 mg Tablet,Delayed Release (Dr/Ec) 325 mg PO BID Qty: 56 RF: 0 oxycodone 5 mg Tablet 5 mg PO Q6H MDD 6 tabs PRN (Reason: pain) Qty: 30 RF: 0 sennosides [Senokot] 8.6 mg Tablet 17.2 mg PO HS PRN (Reason: constipation) Qty: 28 RF: 0 Continued losartan 50 mg Tablet 100 mg PO QAM RF: 0 Stand-Alone Forms: [employer], Opioid Pain Management [facility]/Other Patient Handouts: DVT Prevent Discharge Orders: Discharge Order (Routine); Ordered 10/13/18 Ordered By: Brendon Olivares Admission Data Admit Date/Time: 10/11/18 13:05 Attending Provider: Brendon Olivares Admit Provider: Brendon Olivares Primary Care Provider: Mario Chavez Other Providers: Talha Valadez Service: Surgical Services Other Interventions: Discharge Summary Assessment (RN) Last Done: 10/13/18 10:13 DC Date/Time DO NOT enter until pt leaves facility: 10/13/18 13:22
== END 2018-10-13 13:22 | disposition home health service (06) | DRG 470 ==
LOC: ASU 08:56 → 3E 13:05